=== PATIENT | female | born 1995 | race Caucasian/White ===

== ENCOUNTER → 2023-08-25 10:56 | Outpatient (REF) | payer BC, SELFPAY | LOC: DHCBC MAIN 10:56 | PROVIDERS: ATTENDING PHYSICIAN Internal Medicine; FAMILY PHYSICIAN Nurse Practitioner Family | DX: I35.1 Nonrheumatic aortic (valve) insufficiency (principal) | CPT/HCPCS: 93306 ==

== ENCOUNTER → 2023-09-01 17:56 | Outpatient (REF) | payer BC, SELFPAY | LOC: RAD 17:56 | PROVIDERS: ATTENDING PHYSICIAN Obstetrics & Gynecology; FAMILY PHYSICIAN Nurse Practitioner Family | DX: O26.859 Spotting complicating pregnancy, unspecified trimester (principal) | CPT/HCPCS: 76801 ==